=== PATIENT | male | born 1990 | race Caucasian/White ===

== ENCOUNTER 2021-07-14 17:57 | Emergency (ER) | payer SELFPAY ==
[2021-07-14] MEDS ORDERED: Lidocaine 1% (PF) 30 ML VIAL ONE (19:13)
[2021-07-14] MEDS ORDERED: Boostrix 0.5 ML (Tdap) VIAL ONE (19:39)
== END 2021-07-14 19:52 | disposition home or self-care (01) ==
LOC: CSHERS 17:57
DX: L02.412 Cutaneous abscess of left axilla (principal); L03.112 Cellulitis of left axilla; F17.210 Nicotine dependence, cigarettes, uncomplicated; Z23 Encounter for immunization
CPT/HCPCS: 10060; 90471; 90715; J2001

== ENCOUNTER 2021-11-13 14:45 | Emergency (ER) | payer SELFPAY ==
[2021-11-13] MEDS ORDERED: Ondansetron PF 4 MG/2 ML Vial ONE (15:16)
[2021-11-13] MEDS ORDERED: Dicyclomine 20 MG/2 ML VIAL ONE (15:24)
[2021-11-13 15:36] LABS: #Basophils 0.1 10x3/uL (0.0-0.2); #Monocytes 0.9 10x3/uL (0.0-1.1); #Neutrophils 14.4 10x3/uL (1.5-8.4); %Basophils 0.4 % (0.0-2.0); %Lymphocytes 4.3 % (18.0-47.0); %Monocytes 5.3 % (0.0-10.0); %Neutrophils 89.4 % (40.0-75.0); Hemoglobin 17.1 g/dL (13.5-17.5); Mean Corpuscular HGB CONC 37.2 g/dL (32.0-36.0); Mean Corpuscular Hemoglobin 31.1 pg (27.0-33.0); Mean Corpuscular Volume 83.6 fl (81.2-95.1); Mean Platelet Volume 10.1 fl (7.4-10.4); Platelet Count 313 10x3/uL (150-450); RBC Distribution Width 12.5 % (11.5-14.5); White Blood Cell (WBC) Count 16.2 10x3/uL (3.5-10.5)
[2021-11-13 15:49] LABS: ALT (SGPT) 25 U/L (8-55); AST (SGOT) 22 U/L (5-34); Albumin 5.1 g/dL (3.5-5.0); Alkaline Phosphatase 71 U/L (40-110); Anion Gap 23 mmol/L (10-20); BUN (Urea Nitrogen) 27 mg/dL (8.9-20.6); Bilirubin, Total 1.1 mg/dL (0.2-1.2); Calc. Creatinine Clearance 0 mL/min (70-130); Carbon Dioxide 18 mmol/L (22-29); Chloride 98 mmol/L (98-107); Globulin 3.5 g/dL (2.4-3.5); Glucose 139 mg/dL (70-105); Lipase 6 U/L (8-78); Potassium 3.7 mmol/L (3.5-5.1); Protein, Total 8.6 g/dL (6.0-8.3); Sodium 135 mmol/L (136-145)
== END 2021-11-13 16:53 | disposition home or self-care (01) ==
LOC: CSHERS 14:45
DX: R11.2 Nausea with vomiting, unspecified (principal); R19.7 Diarrhea, unspecified; R79.89 Other specified abnormal findings of blood chemistry; F17.210 Nicotine dependence, cigarettes, uncomplicated
CPT/HCPCS: 80053; 83690; 85025; 96372; 96374; J0500; J2405